=== PATIENT | female | born 1960 | race Caucasian/White ===

== ENCOUNTER → 2017-02-10 | Outpatient (CLI) | payer BC ==
[~2017-02-10] MED LIST: ARIMIDEX DPS1 MG PO; SEROQUEL DPS300 MG PO; SYNTHROID125 MCG PO; TYLENOL DPS325 MG PO
== END | disposition home or self-care (01) ==
LOC: RAD.S 08:52
DX: Z12.31 Encounter for screening mammogram for malignant neoplasm of breast (principal); M81.0 Age-related osteoporosis without current pathological fracture; I10 Essential (primary) hypertension; Z90.710 Acquired absence of both cervix and uterus; Z86.000 Personal history of in-situ neoplasm of breast; Z90.12 Acquired absence of left breast and nipple; Z78.0 Asymptomatic menopausal state; Z79.899 Other long term (current) drug therapy